=== PATIENT | female | born 1950 | race Caucasian/White ===

== ENCOUNTER 2018-09-05 18:38 | Emergency (ER) | payer OTHER, MEDICARE ==
[2018-09-05] MEDS ORDERED: HYOSCYAMINE SULFATE 0.125 MG TAB PO ONE (19:34)
[2018-09-05] MEDS ORDERED: LIDOCAINE 2% VISCOUS 15 ML UDCUP PO ONE (19:34)
[2018-09-05] MEDS ORDERED: MAG HYDROX/AL HYDROX/SIMETH 30 ML UDCUP PO ONE (19:34)
--- NOTE | 2018-09-05 19:45 | EDPHY ---
H & P Time Seen by Provider: 09/05/18 18:46 HPI/ROS: CHIEF COMPLAINT: Swallowed a chicken bone HISTORY OF PRESENT ILLNESS: 5-year-old female states she was eating and the [place] restaurant, eating chicken, when she had abrupt onset left eye sharp sensation in her throat and thinks she swallowed a chicken bone. She did not have a choking episode. She did not cough. She did not vomit. She ate some non after words to see if she could dislodged which she thinks is a chicken bone. She continues to feel pain in the mid neck, just above the thyroid cartilage, especially on the left side. Patient was otherwise well. Has history of GERD but reports this feels nothing like that. Pain is in her throat and neck and not in her stomach or chest. No fever, chills, chest pain, shortness of breath, palpitations, vomiting, diarrhea, urinary complaints, headache, lightheadedness. REVIEW OF SYSTEMS: A comprehensive 10 system review of systems was reviewed and is otherwise negative aside from elements mentioned in the history of present illness and medical decision making. PAST MEDICAL HISTORY: GERD. SOCIAL HISTORY: Here with her . Nonsmoker. VITAL SIGNS: see nurse's notes. GENERAL: Well-developed, well-nourished, in no acute distress. No drooling. Conversant. Looks well. HEENT: Normal, no discharge or icterus, moist mucous membranes. No trauma to the posterior pharynx visualized, no bleeding, handling her secretions well. Neck: supple, FROM. No crepitus. Indicates she feels like the bone is stuck just to the left side of her thyroid cartilage. LUNGS: Clear to auscultation bilaterally, no wheezes, rhonchi or rales. CARDIAC: Regular rate and rhythm, no rubs, murmurs or gallops. ABDOMEN: Soft, nontender, nondistended, bowel sounds normal. BACK: No CVA tenderness. No vertebral tenderness. EXTREMITIES: No edema, FROM. NEURO: Alert and oriented, grossly nonfocal. SKIN: Warm and dry, no rash. Smoking Status: Never smoked Constitutional: Initial Vital Signs Temperature (C) 36.6 C 09/05/18 18:40 Heart Rate 79 09/05/18 18:40 Respiratory Rate 16 09/05/18 18:40 Blood Pressure 158/91 H 09/05/18 18:40 O2 Sat (%) 98 09/05/18 18:40 O2 Delivery Mode Room Air Allergies/Adverse Reactions: No Known Allergies Allergy (Unverified 09/05/18 18:40) Home Medications: Medication Instructions Recorded NK [No Known Home Meds] 09/05/18 Medical Decision Making - Diagnostics Imaging Results: Soft Tissue Neck Impression: Negative. No evidence of chicken bone in throat. Dictated By: Madi Blanco MD ED Course/Re-evaluation: Soft tissue of the neck was ordered. Patient is handling her secretions well. No bony foreign body visualized. Patient received a GI cocktail. She was referred to ENT of follow-up if she continues to have a sensation of a foreign body. We explained that there may be other non radiopaque foreign bodies causing the symptoms, however, it could also be a abrasion secondary to a piece of bone which has now been swallowed. Differential Diagnosis: Differential diagnoses for the patient's symptom complex was considered including but not limited to esophageal obstruction with food bolus, bony foreign body, foreign body in the eye hypopharynx, swallowed foreign body, abrasion. - Data Points Medications Given: Discontinued Medications Al Hydroxide/Mg Hydroxide (Maalox Susp) 30 ml PO ONCE ONE Stop: 09/05/18 19:35 Last Admin: 09/05/18 19:48 Dose: 30 ml Hyoscyamine Sulfate (Levsin, Hyomax-Sl) 0.25 mg PO ONCE ONE Stop: 09/05/18 19:35 Last Admin: 09/05/18 19:48 Dose: 0.25 mg Lidocaine (Lidocaine 2% Viscous) 15 ml PO ONCE ONE Stop: 09/05/18 19:35 Last Admin: 09/05/18 19:49 Dose: 15 ml Departure - Departure Disposition: Home, Routine, Self-Care Clinical Impression: Foreign body sensation in throat Condition: Good Instructions: Foreign Body in Pharynx (ED) Additional Instructions: We do not see any evidence of a chicken bone on the x-ray of your neck. If you continue to have symptoms you may follow up with ENT. Referrals: NONE *PRIMARY CARE P,. [Unknown] - As per Instructions Leanne Moore MD [Medical Doctor] - As per Instructions
[2018-09-05 20:15] VITALS: BP 125/82
== END 2018-09-05 20:13 | disposition home or self-care (01) ==
DX: R09.89 Other specified symptoms and signs involving the circulatory and respiratory systems (principal); K21.9 Gastro-esophageal reflux disease without esophagitis